=== PATIENT | male | born 1980 | race Caucasian/White ===

== ENCOUNTER 2022-04-08 13:55 | Emergency (ER) | payer BC, SELFPAY ==
[2022-04-08 13:56] VITALS: BP 173/102; PULSE 127; RESP 16; TEMP 36.9; O2SAT 99; BMI 23.3
--- NOTE | 2022-04-08 15:30 | ED.VIS.BACK ---
HPI History of Present Illness Chief Complaint: Back Narrative Narrative: 41-year-old male presenting with right lower rib pain. Patient states that he coughed and sneezed at the same time a couple of days ago and noticed that it started hurting after this. He stated over the weekend he tried Tylenol, IcyHot, rest and this did not help. 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 Denies any shortness of breath history or cough that significant. He states he does have a smoker's cough. PFSH PFSH Home Medications doxycycline hyclate 100 mg capsule 100 mg PO BID #14 caps 04/08/22 [Rx Last Taken Unknown] lidocaine 5 % topical patch (Lidoderm) 1 patch topical DAILY #15 ea 04/08/22 [Rx Last Taken Unknown] naproxen 500 mg tablet (Naprosyn) 500 mg PO BID PRN pain #20 tabs 04/08/22 [Rx Last Taken Unknown] tizanidine 4 mg capsule (Zanaflex) 4 mg PO Q8H PRN muscle spasticity #18 caps 04/08/22 [Rx Last Taken Unknown] Allergy/AdvReac Type Severity Reaction Status Date / Time No Known Allergies Allergy Verified 04/08/22 13:56 Social History Smoking Status: Current every day smoker tobacco type: cigarettes ROS ROS ED Constitutional Constitutional ED: Denies chills or fever(s) ENT ENT ED: Denies rhinorrhea or sore throat Cardiovascular Cardiovascular: Denies chest pain or palpitations Respiratory/Chest Respiratory/Chest: Denies dyspnea or dyspnea on exertion Gastrointestinal Gastrointestinal: Denies abdominal pain or constipation Genitourinary Genitourinary ED: Denies dysuria or hematuria Musculoskeletal Musculoskeletal: Reports back pain; Denies arthralgias Integumentary Denies abscess Neurologic Neurologic: Denies headache(s) or paresthesias Psychiatric Psychiatric: Denies anxiety or depression EXAM Physical Exam Const Vital Signs: 04/08/22 13:56 Temperature 98.5 F Temperature Source Temporal Pulse Rate 127 H Respiratory Rate 16 Blood Pressure 173/102 H Blood Pressure Mean 125 Pulse Ox 99 Oxygen Delivery Method Room Air Positive well nourished General Appearance ED: NAD; Negative for pallor HEENT Reports moist mucous membranes Eyes PERRL and EOMs intact bilaterally Chest Wall Chest Narrative: Tenderness to palpation right posterior ribs posterior axillary line. No crepitance or deformity. Equal symmetric breath sounds or chest wall rise. Resp normal respiratory effort and clear to auscultation bilaterally Auscultation: Negative for rales, rhonchi or wheezes Cardio regular rhythm Rate: tachycardic GI normal to inspection, nondistended, normoactive bowel sounds Back/Spine Back/Spine Narrative: No midline thoracic or lumbar spinal tenderness, deformity, step-off. Neuro oriented x3 and no sensory deficits noted Sensorium / Orientation: alert Motor Exam: strength 5/5 throughout Psych mental status grossly normal Skin no rashes or lesions noted and no wounds General Skin Exam: Negative for jaundice or pallor MDM MDM MDM Narrative Medical decision making narrative: Patient presenting with right lower rib pain. He states that he coughed and sneezed at the same time earlier this weekend and his pain has been there persistently since. He does admit to some henry sputum as well although he does not have a significant cough. He is a smoker. Patient stated that [id number] medication was not working. I obtained a right rib series and on my interpretation there appears to be a right lower lobe pneumonia without any evidence of rib fractures. There is no pneumothorax identified. Radiologist does agree. Patient was medicated on arrival with Norflex, Toradol and given a lidocaine patch. He states he does have improvement of his pain. He is not having any systemic signs or symptoms such as fever, chills however it is possible he could have developed pneumonia after having the rib pain and not aerating his lungs. He will be placed on doxycycline to cover for this he is given prescription for muscle relaxers and pain medication for home. Patient discharged in stable condition. Impression: 1. Right rib strain 2. Right lower lobe pneumonia Radiography Diagnostic Testing: Clinical Impression(s) from Imaging Studies Ribs w/Chest X-Ray 04/08/22 15:37 IMPRESSION: RIBS: Normal x-ray examination of the ribs. CHEST: Right lower lobe pneumonia. Electronically Signed: Dash Khan MD at 15:59 EDT , Discharge Plan Triage Chief Complaint: Back ED Provider: Huan Bui Dx/Rx/DC Orders Instructions: ED Muscle Spasm, ED Pneumonia (Adult) Prescriptions: New doxycycline hyclate 100 mg capsule 100 mg PO BID Qty: 14 0RF tizanidine [Zanaflex] 4 mg capsule 4 mg PO Q8H PRN (Reason: muscle spasticity) Qty: 18 0RF naproxen [Naprosyn] 500 mg tablet 500 mg PO BID PRN (Reason: pain) Qty: 20 0RF lidocaine [Lidoderm] 5 % adhesive patch,medicated 1 patch topical DAILY Qty: 15 0RF Rx Instructions: leave on most painful area for up to 12 hrs Primary Care Provider: Care Physician,No Primary Referrals: Boy Angel MD [Non-Staff] - 3-5 Days Cj Chávez III, MD [[facility]] - Disposition Disposition: Home, Self Care
[2022-04-08] MEDS: Lidocaine 5% Patch 1 PATCH TOPICAL (15:33)
[2022-04-08] MEDS: Ketorolac 15 MG/ML Vial IM (15:34)
[2022-04-08] MEDS: Orphenadrine 100 MG Tablet PO (15:34)
--- NOTE | 2022-04-08 15:37 | RAD_ITS ---
STUDY: X-RAY - UNILATERAL RIBS ( RIGHT ) WITH CHEST REASON FOR EXAM: Male, 41 years old. pain TECHNIQUE - RIBS: 4 view(s) of the ribs. TECHNIQUE - CHEST: Single PA view of the chest. COMPARISON: None. FINDINGS - RIBS: Normal visualized ribs without a demonstrated fracture. FINDINGS - CHEST: Alveolar opacity in the lower right lung consistent with right lower lobe pneumonia. There is no demonstrated pleural abnormality. Normal size heart. Normal mediastinum and saman. Normal visualized pulmonary arteries. Normal visualized aortic arch and descending thoracic aorta. Normal visualized thoracic spine. Normal visualized ribs, clavicles, and shoulders. There is no demonstrated abnormality of the visualized soft tissue structures of the upper abdomen. RAD/Ribs Uni Min 3V w/PA Chest IMPRESSION: RIBS: Normal x-ray examination of the ribs. CHEST: Right lower lobe pneumonia. Electronically Signed: Dash Khan MD at 15:59 EDT ,
[2022-04-08] MEDS: Doxycycline 100 MG CAPSULE PO (16:21)
== END 2022-04-08 16:23 | disposition home or self-care (01) ==
PROVIDERS: Emergency Provider Student in an Organized Health Care Education/Training Program; Visit Provider Student in an Organized Health Care Education/Training Program
DX: R07.81 Pleurodynia (principal); J41.0 Simple chronic bronchitis
CPT/HCPCS: 71101; 99284

== ENCOUNTER 2024-04-06 10:44 | Emergency (ER) | payer BC, SELFPAY ==
[2024-04-06 10:44] VITALS: BP 170/108; PULSE 83; RESP 14; TEMP 36.8; O2SAT 100; BMI 24.5
--- NOTE | 2024-04-06 12:36 | RAD_ITS ---
STUDY: X-RAY - UNILATERAL RIBS ( LEFT ) WITH CHEST REASON FOR EXAM: Male, 43 years old. Fall. Pain. TECHNIQUE - RIBS: 4 view(s) of the ribs. TECHNIQUE - CHEST: Single frontal view of the chest. COMPARISON: Chest dated April 08, 2022 FINDINGS - RIBS: Minimally displaced fractures of the left peripheral sixth, seventh and eighth ribs. FINDINGS - CHEST: The lungs are clear and expanded. There is no demonstrated pleural abnormality. Stable borderline cardiomegaly. Normal mediastinum and saman. Normal visualized pulmonary arteries. Aortic tortuosity unchanged No abnormality of the visualized soft tissue structures of the upper abdomen. RAD/Ribs Uni Min 3V w/PA Chest IMPRESSION: RIBS: Left sixth seventh and eighth rib fractures. No pneumothorax noted. CHEST: Stable chest. Electronically Signed: Ren Draling MD at 13:10 EDT ,
--- NOTE | 2024-04-06 12:37 | EDS_ITS ---
HPI History of Present Illness Chief Complaint: Fall Detail of Chief Complaint: Fall with injury to left ribs Informant: patient Narrative Narrative: Patient presents to the emergency department with a fall and injury to his left ribs that occurred last evening around 9 PM. Patient states that he fell in the tub and hit his left chest against the edge of the tub. Denies striking his head. Denies loss of consciousness. Complains of pain with deep breath and movement. Denies any abdominal pain. He has been ambulatory. PFSH PFSH Medical History no medical history Home Medications ?Medication ?Instructions ?Recorded ?Last Taken ?Type doxycycline hyclate 100 mg capsule 100 mg PO BID #14 caps 04/08/22 Unknown Rx lidocaine 5 % topical patch 1 patch topical DAILY #15 ea 04/08/22 Unknown Rx (Lidoderm) naproxen 500 mg tablet (Naprosyn) 500 mg PO BID PRN pain #20 tabs 04/08/22 Unknown Rx tizanidine 4 mg capsule (Zanaflex) 4 mg PO Q8H PRN muscle spasticity 04/08/22 Unknown Rx #18 caps hydrocodone-acetaminophen 5-325mg 1 tab PO Q4H PRN PRN Pain 2 days 04/06/24 Unknown Rx 5mg-325mg #15 TABLETS Allergy/AdvReac Type Severity Reaction Status Date / Time No Known Allergies Allergy Verified 04/06/24 10:46 Family History no significant family his Surgical History no surgical history Social History Smoking Status: Current every day smoker tobacco type: cigarettes ROS ROS ED Review of Systems ROS Unobtainable: other Constitutional Constitutional ED: Reports lethargy; Denies chills, fever(s), sweats or weight loss Eyes Eyes: Denies blurry vision, change in vision or diplopia ENT ENT ED: Denies rhinorrhea or sore throat Cardiovascular Cardiovascular: Reports chest pain; Denies orthopnea or racing heartbeat Respiratory/Chest Respiratory/Chest: Denies cough, dyspnea, dyspnea on exertion, orthopnea or sputum Gastrointestinal Gastrointestinal: Denies abdominal pain, diarrhea, nausea or vomiting Genitourinary Genitourinary ED: Denies dysuria, hematuria or urinary frequency Musculoskeletal Musculoskeletal: Denies arthralgias, back pain, myalgias or neck pain Integumentary Denies abscess, Abrasions or rash Neurologic Neurologic: Denies headache(s) or weakness Psychiatric Psychiatric: Denies anxiety, depression or suicidal thoughts Endocrine Endocrinology: Denies polydipsia, polyphagia or polyuria Hematologic/Lymphatic Hematologic/Lymphatic: Denies easy bleeding, easy bruising or lymphadenopathy Allergic/Immunologic Allergic/Immunologic ED: Denies mouth swelling, tongue swelling or urticaria EXAM Physical Exam Const Vital Signs: 04/06/24 10:44 04/06/24 11:29 04/06/24 12:41 Temperature 98.3 F Temperature Source Temporal Pulse Rate 83 64 Respiratory Rate 14 Respiratory Effort Normal Non-Labored Respiratory Depth Normal Respiratory Pattern Normal Blood Pressure 170/108 H 150/101 H Blood Pressure Mean 128 117 Pulse Ox 100 100 Oxygen Delivery Method Room Air Room Air Room Air 04/06/24 14:00 Temperature Temperature Source Pulse Rate 59 L Respiratory Rate 16 Respiratory Effort Respiratory Depth Respiratory Pattern Blood Pressure 150/94 H Blood Pressure Mean 112 Pulse Ox 99 Oxygen Delivery Method Room Air Positive well nourished and well developed General Appearance ED: well developed and NAD HEENT Reports TM's clear and moist mucous membranes normocephalic and atraumatic; Negative for trauma or tenderness Tympanic Membrane ED: Yes TM's clear Eyes PERRL and EOMs intact bilaterally General Eye ED: Negative for pale conjunctiva or scleral icterus Neck no lymphadenopathy, supple and no JVD General: Negative for tenderness Chest Wall inspection of chest normal and palpation of chest normal Chest Narrative: Diffuse tenderness palpation over the left anterior chest wall into the mid axillary line. There is no crepitus or subcu for Mele. There is no ecchymosis or bruising. Good breath sounds bilaterally. Chest: Negative for tenderness Resp normal respiratory effort and clear to auscultation bilaterally Effort and Inspection: Negative for respiratory distress or pain with movement Auscultation: Negative for rhonchi, wheezes or diminished lung sounds Cardio regular rate, regular rhythm, S1 normal heart sound, S2 normal heart sound and no murmurs Peripheral Pulses: pulses 2+ throughout GI normal to inspection, nondistended, normoactive bowel sounds, soft to palpation, non-tender, non-distended and no masses Back/Spine no CVA tenderness and no thoracic nor lumbar tenderness Extremity normal to inspection General Extremety ED: Negative for edema General Extremity: Negative for edema Neuro oriented x3, CN's II-XII intact bilaterally, no sensory deficits noted and gait normal Sensorium / Orientation: awake, alert, oriented to person, oriented to place and oriented to time Motor Exam: strength 5/5 throughout and strength abnormal Psych mental status grossly normal Skin no rashes or lesions noted and no wounds MDM MDM MDM Narrative Medical decision making narrative: Patient presents with a fall and injury to the left ribs. X-ray showed fracture of left 6 7 and 8 ribs. No evidence for pneumothorax. I did give him a shot of Dilaudid 1 mg IM and Zofran 4 mg IM. Will write work restrictions. Will be given a prescription for Vicodin. Advised to follow-up with primary care physician the next 5 to 7 days. He is to return if hemoptysis, increasing shortness of breath, or condition should worsen anyway. Radiography Diagnostic Testing: Clinical Impression(s) from Imaging Studies Ribs w/Chest X-Ray 04/06/24 12:36 IMPRESSION: RIBS: Left sixth seventh and eighth rib fractures. No pneumothorax noted. CHEST: Stable chest. Electronically Signed: Ren Darling MD at 13:10 EDT , Three-view x-rays of the left ribs and chest obtained interpreted by myself as fractures of ribs numbers 6, 7, and 8. No evidence of pneumothorax. Radiology in agreement. Discharge Plan Triage Chief Complaint: Fall ED Provider: Tera Tabares Dx/Rx/DC Orders Clinical Impression: Fall, Left rib fracture Instructions: ED Rib Fracture Prescriptions: New hydrocodone-acetaminophen 5-325 mg tablet 1 tab PO Q4H PRN PRN (Reason: Pain) 2 Days Qty: 15 0RF No Action doxycycline hyclate 100 mg capsule 100 mg PO BID Qty: 14 0RF tizanidine [Zanaflex] 4 mg capsule 4 mg PO Q8H PRN (Reason: muscle spasticity) Qty: 18 0RF naproxen [Naprosyn] 500 mg tablet 500 mg PO BID PRN (Reason: pain) Qty: 20 0RF lidocaine [Lidoderm] 5 % adhesive patch,medicated 1 patch topical DAILY Qty: 15 0RF Rx Instructions: leave on most painful area for up to 12 hrs Primary Care Provider: Care PhysicianSharlene Primary Referrals: Yazan Yusuf MD [Non-Staff] - 5-7 Days Care Physician,No Primary [Primary Care Provider] - Print Language: Mongolian Disposition Disposition: Home, Self Care
[2024-04-06 12:41] VITALS: BP 150/101; PULSE 64; O2SAT 100
[2024-04-06 14:00] VITALS: BP 150/94; PULSE 59; RESP 16; O2SAT 99
[2024-04-06] MEDS: Ondansetron 4 MG/2 ML Vial IM (14:19)
[2024-04-06] MEDS: HYDROmorphone 1 MG/ML Syringe IM (14:20)
[2024-04-06 14:38] VITALS: BP 159/73; PULSE 66; RESP 16; TEMP 36.6; O2SAT 99
== END 2024-04-06 14:43 | disposition home or self-care (01) ==
PROVIDERS: Emergency Provider Emergency Medicine; Visit Provider Emergency Medicine
DX: S22.42XA Multiple fractures of ribs, left side, initial encounter for closed fracture (principal); F17.210 Nicotine dependence, cigarettes, uncomplicated; W18.2XXA Fall in (into) shower or empty bathtub, initial encounter
CPT/HCPCS: 71101; 96372; 99282; J2405